=== PATIENT | male | born 1980 | race Caucasian/White ===

== ENCOUNTER 2018-08-28 19:03 | Emergency (ER) | payer MEDICAID ==
[2018-08-28] MEDS ORDERED: SODIUM CHLORIDE 0.9% 1,000 ML IV ONE ×2 (19:27→22:23)
[2018-08-28] MEDS ORDERED: methylPREDNISolone SUCCINATE 125 MG/2 ML VIAL IVP STA (20:45)
[2018-08-28] MEDS ORDERED: ONDANSETRON 4 MG/2 ML VIAL IVP STA (22:23)
[2018-08-28 22:30] LABS: BASOPHILS % (AUTO) 0.4 %; EOSINOPHILS # (AUTO) 0.1 10^3/uL (0.0-0.7); EOSINOPHILS % (AUTO) 0.8 %; HGB - HEMOGLOBIN 13.4 g/dL (14.0-18.0); LYMPHOCYTES # (AUTO) 1.2 10^3/uL (1.5-3.5); MEAN CORPUSCULAR HEMOGLOBIN 30.3 pg (27.0-31.0); MEAN CORPUSCULAR HGB CONC 35.1 g/dL (32.0-36.0); MEAN CORPUSCULAR VOLUME 86.4 fL (80.0-94.0); MEAN PLATELET VOLUME 7.8 fL (7.4-11.4); MONOCYTES # (AUTO) 0.5 10^3/uL (0.0-1.0); MONOCYTES % (AUTO) 5.8 %; PLT - PLATELET COUNT 344 10^3/uL (130-450); RED BLOOD COUNT 4.42 10^6/uL (4.70-6.10); RED CELL DISTRIBUTION WIDTH 14.9 % (12.0-15.0); WHITE BLOOD COUNT 8.9 x10^3/uL (4.8-10.8)
[2018-08-28] MEDS ORDERED: diphenhydrAMINE INJ 50 MG/ML VIAL IVP STA (22:41)
[2018-08-28 22:44] LABS: ALBUMIN/GLOBULIN RATIO 1.3 (1.0-2.2); BILIRUBIN,TOTAL 0.6 mg/dL (0.2-1.0); CALCIUM 8.7 mg/dL (8.5-10.3); CREATININE 0.7 mg/dL (0.6-1.2)
--- NOTE | 2018-08-28 22:45 | ED Physician Documentation ---
PD HPI ABD PAIN - Stated complaint Stated Complaint: ABD PX/CANT EAT - Chief complaint Chief Complaint: Abd Pain - History obtained from History obtained from: Patient - History of Present Illness Timing - onset: How many weeks ago (1) Timing - duration: Weeks (1) Timing - details: Gradual onset, Still present Quality: Cramping Location: Periumbilical Improved by: Laying still Worsened by: Eating, Position, Palpation Associated symptoms: Nausea, Diarrhea. No: Vomiting Similar symptoms before: Diagnosis (chrons) Recently seen: Not recently seen - Additional information Additional information: 38-year-old male with past history of IV drug abuse has recently gotten out of alf about 4 months ago and he has a history of Crohn's disease which during the time he was in alf was active once and he received some oral prednisone with improvement. He states he was on some meds living at the time as well. He has not been on any medications since and over the past week is developed increased cramping and diarrhea. He is having some trouble eating today as it was causing pain as well. Review of Systems Constitutional: reports: Fatigue. denies: Fever, Chills Eyes: denies: Decreased vision Ears: denies: Ear pain Nose: denies: Rhinorrhea / runny nose, Congestion Cardiac: denies: Chest pain / pressure, Palpitations Respiratory: denies: Dyspnea, Cough GI: reports: Abdominal Pain, Nausea, Diarrhea. denies: Vomiting : denies: Dysuria, Frequency PD PAST MEDICAL HISTORY - Past Medical History Cardiovascular: None Respiratory: None Endocrine/Autoimmune: None GI: Crohn's disease : None HEENT: None Psych: Depression, Anxiety Musculoskeletal: Osteopenia, Chronic back pain - Past Surgical History Past Surgical History: Yes - Present Medications Home Medications: Ambulatory Orders Medication Instructions Recorded Confirmed Sulfamethoxazole/Trimethoprim 1 each PO BID #14 tablet 11/20/14 [Sulfamethoxazole-Tmp Ds Tablet] cephALEXin [Keflex] 500 mg PO Q6H #28 capsule 11/20/14 oxyCODONE/ACET 5/325 [Percocet 5 1 - 2 each PO Q4-6H PRN #15 tablet 11/20/14 mg/325 mg] Mesalamine [Pentasa] 1,000 mg PO QID #120 capsule.er 08/28/18 predniSONE [Deltasone] 10 mg PO DAILY #26 tablet 08/28/18 - Allergies Allergies/Adverse Reactions: Allergies Allergy/AdvReac Type Severity Reaction Status Date / Time acetaminophen [From Vicodin] Allergy Emesis Verified 08/28/18 19:12 hydrocodone bitartrate * Allergy Emesis Verified 08/28/18 19:12 [From Vicodin] tramadol HCl * [From Ultram] Allergy Anxiety Verified 08/28/18 19:12 - Social History Does the pt smoke?: Yes Smoking Status: Current every day smoker Does the pt drink ETOH?: No Does the pt have substance abuse?: No - Immunizations Immunizations are current?: Yes - POLST Patient has POLST: No PD ED PE NORMAL - Vitals Vital signs reviewed: Yes (hypertensive marked diastolic ) - General General: Alert and oriented X 3, No acute distress, Well developed/nourished - HEENT HEENT: Atraumatic, PERRL, EOMI, Other (teeth are bad) - Neck Neck: Supple, no meningeal sign, No bony TTP - Cardiac Cardiac: RRR, No murmur - Respiratory Respiratory: No respiratory distress, Clear bilaterally - Abdomen Abdomen: Soft, Other (mild epigastric tenderness. ) - Back Back: No CVA TTP, No spinal TTP - Derm Derm: Normal color, Warm and dry - Extremities Extremities: No deformity, Normal ROM s pain, No edema - Neuro Neuro: Alert and oriented X 3 Eye Opening: Spontaneous Motor: Obeys Commands Verbal: Oriented GCS Score: 15 - Psych Psych: Normal mood, Normal affect Results - Vitals Vitals: Vital Signs - 24 hr 08/28/18 08/28/18 19:05 20:49 Temperature 37.0 C Heart Rate 79 63 Respiratory 18 16 Rate Blood Pressure 147/104 H 132/93 H O2 Saturation 99 98 Oxygen O2 Source Room air - Labs Labs: Laboratory Tests 08/28/18 08/28/18 22:20 22:20 WBC 8.9 RBC 4.42 L Hgb 13.4 L Hct 38.2 L MCV 86.4 MCH 30.3 MCHC 35.1 RDW 14.9 Plt Count 344 MPV 7.8 Neut # (Auto) 7.0 H Lymph # (Auto) 1.2 L [place] # (Auto) 0.5 Eos # (Auto) 0.1 Baso # (Auto) 0.0 Absolute Nucleated RBC 0.01 Nucleated RBC % 0.1 Sodium 133 L Potassium 4.5 Chloride 100 L Carbon Dioxide 28 Anion Gap 5.0 L BUN 10 Creatinine 0.7 Estimated GFR (MDRD) 126 Glucose 96 Calcium 8.7 Total Bilirubin 0.6 AST 16 ALT 11 Alkaline Phosphatase 100 Total Protein 7.0 Albumin 4.0 Globulin 3.0 Albumin/Globulin Ratio 1.3 Lipase 23 PD MEDICAL DECISION MAKING - ED course Complexity details: reviewed old records, reviewed results, re-evaluated patient, considered differential, d/w patient ED course: 38-year-old male with a flare of his Crohn's disease is administered a liter of saline 125 mg of Solu-Medrol and 4 mg of Zofran which causes a reaction of the patient's arm. He subsequently administered Benadryl 25 mg intravenously. Departure - Departure Disposition: 01 Home, Self Care Clinical Impression: Crohn's disease Condition: Stable Instructions: Crohn Disease, Disease Crohn Lifestyle Manage Follow-Up: Your, doctor at the [facility] [Other] Prescriptions: Mesalamine [Pentasa] 1,000 mg PO QID #120 capsule.er predniSONE [Deltasone] 10 mg PO DAILY #26 tablet
[2018-08-28 23:22] VITALS: BP 128/87
== END 2018-08-28 23:22 | disposition home or self-care (01) ==
LOC: ED 19:03
DX: K50.90 Crohn's disease, unspecified, without complications (principal); F17.200 Nicotine dependence, unspecified, uncomplicated
CPT/HCPCS: 36415; 80053; 83690; 85025; 96361; 96374; 96375; 99283; J1200

== ENCOUNTER 2021-09-27 14:17 | Emergency (ER) | payer MEDICAID, OTHER ==
[2021-09-27 15:01] LABS: BILIRUBIN,URINE NEGATIVE (NEGATIVE); GLUCOSE, URINE (UA) NEGATIVE (NEGATIVE); KETONES,URINE (UA) NEGATIVE (NEGATIVE); LEUKOCYTE ESTERASE, URINE NEGATIVE (NEGATIVE); NITRITE,URINE NEGATIVE (NEGATIVE); OCCULT BLOOD,URINE TRACE-INTA (NEGATIVE); PROTEIN,URINE NEGATIVE (NEGATIVE); UROBILINOGEN,URINE 0.2 (NORMAL) E.U./dL (NORMAL)
[2021-09-27 15:02] LABS: CLARITY,URINE HAZY (CLEAR)
[2021-09-27 15:23] LABS: AMORPHOUS SEDIMENT,UR Marked /LPF; BACTERIA,URINE None Seen /HPF (None Seen); RBC,URINE 0-5 /HPF (0-5); SQUAMOUS EPITHELIAL CELL,UR NONE SEEN (<= Few); WBC,URINE 0-3 /HPF (0-3)
[2021-09-27 16:16] LABS: BASOPHILS % (AUTO) 0.4 %; EOSINOPHILS # (AUTO) 0.1 10^3/uL (0.0-0.7); EOSINOPHILS % (AUTO) 0.9 %; HCT - HEMATOCRIT 42.1 % (42.0-52.0); HGB - HEMOGLOBIN 13.8 g/dL (14.0-18.0); LYMPHOCYTES # (AUTO) 1.4 10^3/uL (1.5-3.5); LYMPHOCYTES % (AUTO) 20.4 %; MEAN CORPUSCULAR HEMOGLOBIN 30.8 pg (27.0-31.0); MEAN CORPUSCULAR HGB CONC 32.8 g/dL (32.0-36.0); MEAN PLATELET VOLUME 9.7 fL (7.4-11.4); MONOCYTES # (AUTO) 0.7 10^3/uL (0.0-1.0); MONOCYTES % (AUTO) 10.9 %; NEUTROPHILS # (AUTO) 4.5 10^3/uL (1.5-6.6); NEUTROPHILS % (AUTO) 67.3 %; PLT - PLATELET COUNT 404 10^3/uL (130-450); RED BLOOD COUNT 4.48 10^6/uL (4.70-6.10); RED CELL DISTRIBUTION WIDTH 12.9 % (12.0-15.0); WHITE BLOOD COUNT 6.7 x10^3/uL (4.8-10.8)
[2021-09-27 16:18] LABS: ALBUMIN 4.4 g/dL (3.2-5.5); ALBUMIN/GLOBULIN RATIO 1.2 (1.0-2.2); BILIRUBIN,TOTAL 0.4 mg/dL (0.2-1.0); CALCIUM 9.8 mg/dL (8.5-10.3); CREATININE 0.8 mg/dL (0.6-1.2); POTASSIUM 4.3 mmol/L (3.5-5.0)
[2021-09-27] MEDS ORDERED: SODIUM CHLORIDE 0.9% 1,000 ML IV STA (18:12)
[2021-09-27] MEDS ORDERED: methylPREDNISolone SUCCINATE 125 MG/2 ML VIAL IVP STA (18:12)
--- NOTE | 2021-09-27 18:13 | ED Physician Documentation ---
PD HPI ABD PAIN - Stated complaint Stated Complaint: ABD PX - Chief complaint Chief Complaint: Abd Pain - History obtained from History obtained from: Patient - Additional information Additional information: 41-year-old gentleman with history of Crohn's currently on Humira and mesalamine. Is been several years since he has had a flare but over the last few weeks has had increasing cramps, inability to eat, nausea and yesterday had some small blood in the stool. He used to be a "frequent flyer" but had some problems with opiate addiction and got clean for years ago. Review of Systems Constitutional: reports: Reviewed and negative Eyes: reports: Reviewed and negative Throat: reports: Reviewed and negative Cardiac: reports: Reviewed and negative PD PAST MEDICAL HISTORY - Past Medical History Past Medical History: Yes Cardiovascular: None Respiratory: None Endocrine/Autoimmune: None GI: Crohn's disease : None HEENT: None Psych: Depression, Anxiety Musculoskeletal: Osteopenia, Chronic back pain - Past Surgical History Past Surgical History: Yes - Present Medications Home Medications: Ambulatory Orders Medication Instructions Recorded Confirmed Mesalamine [Pentasa] 1,000 mg PO QID #120 capsule.er 08/28/18 09/27/21 Buprenorphine HCl/Naloxone HCl 8 mg PO DAILY 09/27/21 09/27/21 [Suboxone 8 mg-2 mg Sl Film] Tamsulosin [Flomax] 0.4 mg PO DAILY 09/27/21 09/27/21 Venlafaxine HCl [Effexor Xr] 150 mg PO DAILY 09/27/21 09/27/21 buPROPion HCL [Bupropion Xl] 300 mg PO DAILY 09/27/21 09/27/21 predniSONE [Deltasone] 4 tablet PO DAILY #70 tablet 09/27/21 - Allergies Allergies/Adverse Reactions: Allergies Allergy/AdvReac Type Severity Reaction Status Date / Time acetaminophen [From Vicodin] Allergy Emesis Verified 09/27/21 14:26 hydrocodone bitartrate * Allergy Emesis Verified 09/27/21 14:26 [From Vicodin] tramadol HCl * [From Ultram] Allergy Anxiety Verified 09/27/21 14:26 - Social History Does the pt smoke?: Yes Smoking Status: Current every day smoker Does the pt drink ETOH?: No Does the pt have substance abuse?: No - Immunizations Immunizations are current?: Yes - POLST Patient has POLST: No PD ED PE NORMAL - Vitals Vital signs reviewed: Yes - General General: Alert and oriented X 3, No acute distress - Abdomen Abdomen: Other (Hyperactive bowel tones, soft and nontender) - Neuro Neuro: Alert and oriented X 3, Normal speech - Psych Psych: Normal mood, Normal affect Results - Vitals Vitals: Vital Signs - 24 hr 09/27/21 09/27/21 09/27/21 14:26 17:42 19:23 Temperature 36.7 C 36.6 C Heart Rate 91 94 80 Respiratory 18 20 Rate Blood Pressure 137/91 H 123/78 119/86 H O2 Saturation 98 100 09/27/21 20:23 Temperature 36.6 C Heart Rate 84 Respiratory 14 Rate Blood Pressure O2 Saturation 100 Oxygen O2 Source Room air - Labs Labs: Laboratory Tests 09/27/21 09/27/21 09/27/21 14:52 16:01 16:01 WBC 6.7 RBC 4.48 L Hgb 13.8 L Hct 42.1 MCV 94.0 MCH 30.8 MCHC 32.8 RDW 12.9 Plt Count 404 MPV 9.7 Neut # (Auto) 4.5 Lymph # (Auto) 1.4 L [place] # (Auto) 0.7 Eos # (Auto) 0.1 Baso # (Auto) 0.0 Absolute Nucleated RBC 0.00 Nucleated RBC % 0.0 Sodium 136 Potassium 4.3 Chloride 99 L Carbon Dioxide 24 Anion Gap 13.0 BUN 14 Creatinine 0.8 Estimated GFR (MDRD) 106 Glucose 98 Calcium 9.8 Total Bilirubin 0.4 AST 28 ALT 27 Alkaline Phosphatase 130 H Total Protein 8.0 Albumin 4.4 Globulin 3.6 Albumin/Globulin Ratio 1.2 Lipase 80 H Urine Color YELLOW Urine Clarity HAZY Urine pH 7.0 Ur Specific [place] 1.020 Urine Protein NEGATIVE Urine Glucose (UA) NEGATIVE Urine Ketones NEGATIVE Urine Occult Blood TRACE-INTA Urine Nitrite NEGATIVE Urine Bilirubin NEGATIVE Urine Urobilinogen 0.2 (NORMAL) Ur Leukocyte Esterase NEGATIVE Urine RBC 0-5 Urine WBC 0-3 Ur Squamous Epith Cells NONE SEEN Amorphous Sediment Marked Urine Bacteria None Seen Ur Microscopic Review INDICATED Urine Culture Comments NOT INDICATED PD MEDICAL DECISION MAKING - ED course ED course: 41-year-old gentleman with Crohn's flare, benign exam and relatively unremarkable labs. He was administered IV fluids and Solu-Medrol here with improvement and a steroid taper to go home with pending follow-up with his director medical affairs. Departure - Departure Disposition: , Self Care Clinical Impression: Crohn's disease Condition: Good Record reviewed to determine appropriate education?: Yes Instructions: ED Inflam Bowel Disease Crohn Prescriptions: predniSONE [Deltasone] 4 tablet PO DAILY #70 tablet Comments: Follow-up with your director medical affairs, return for new or worsening symptoms. No need to fill prescriptions tonight as you had an IV dose of steroids but do fill them tomorrow and start the taper. Discharge Date/Time: 09/27/21 20:25
[2021-09-27 19:23] VITALS: BP 119/86
== END 2021-09-27 20:25 | disposition home or self-care (01) ==
LOC: ED 14:17
DX: K50.90 Crohn's disease, unspecified, without complications (principal); F17.200 Nicotine dependence, unspecified, uncomplicated
CPT/HCPCS: 36415; 80053; 81001; 81003; 83690; 85025; 87086; 96374; 99283

== ENCOUNTER 2022-01-25 12:30 | Outpatient (CLI) | payer OTHER ==
[2022-01-25] MEDS ORDERED: IOVERSOL 320 50 ML VIAL ONE (12:46)
[2022-01-25] MEDS ORDERED: IOVERSOL 320 100 ML VIAL IVP ONE ×2 (12:46→16:04)
[2022-01-25] MEDS ORDERED: IOVERSOL 320 50 ML VIAL PO ONE (16:04)
--- NOTE | 2022-01-25 16:20 | CT Report ---
PROCEDURE: CHEST W INDICATIONS: UNEXPLAINED WEIGHT LOSS CONTRAST: IV CONTRAST: Optiray 320 ml: 100 PO CONTRAST: Optiray 320 ml50 TECHNIQUE: After the administration of intravenous contrast, 1 mm axial images were acquired from the pulmonary apices through the posterior costophrenic angles. Axial 5 mm soft tissue kernel reconstructions were performed as well as 8 mm axial MIP and coronal and sagittal 5 mm reformations. For radiation dose reduction, the following was used: automated exposure control, adjustment of mA and/or kV according to patient size. COMPARISON: None. FINDINGS: CT CHEST: Thyroid: Homogeneous. Vasculature: The thoracic aorta and arch vasculature have a normal contrasted appearance and are norm al size and contour. No evidence for dissection. Heart: No cardiomegaly or significant pericardial effusion. Mediastinum: No pathologic lymph node enlargement by size criteria. Lung/pleura: No pleural effusion, consolidation, or pneumothorax. No suspicious pulmonary nodule or m ass. Tracheobronchial tree: Patent. Bones: No significant abnormality. Mild anterior compression deformity of T8, which appears remote. Chest wall: The chest wall and axilla are within normal limits. IMPRESSION: 1.No significant abnormality. Reviewed by: Konstantin aGrcia MD on 01/25/2022 4:19 PM PDT Approved by: Konstantin Garcia MD on 01/25/2022 4:19 PM PDT Station ID: [id number]
--- NOTE | 2022-01-25 16:25 | CT Report ---
PROCEDURE: Abdomen/Pelvis W INDICATIONS: UNEXPLAINED WEIGHT LOSS CONTRAST: IV CONTRAST: Optiray 320 ml: 100 PO CONTRAST: Optiray 320 ml50 TECHNIQUE: After the administration of oral and intravenous contrast, 5 mm thick sections acquired from the diap hragms to the symphysis. 5 mm thick coronal and sagittal reformats were acquired. For radiation dos e reduction, the following was used: automated exposure control, adjustment of mA and/or kV accordin g to patient size. COMPARISON: May 21, 2014. FINDINGS: Gallbladder: The gallbladder is distended with a smooth thin wall. Biliary tree: No intra-or extrahepatic biliary ductal dilatation. Liver: The liver demonstrates normal enhancement, size, and contour. Focal fatty infiltration adjacen t to the falciform ligament. Spleen: Normal enhancement, size and morphology is seen. Embolic material is seen in the splenic hilu m, which causes beam hardening artifact. Pancreas: No contour deforming mass or inflammatory change. Adrenals: Normal size without masses. Kidneys/ureters: Symmetric enhancement without evidence of obstructive uropathy. Punctate right lower pole nephrolithiasis. Vasculature: No evidence of aneurysm or other significant vascular pathology. Lymphatic system: No pathologic enlargement by size criteria. GI/mesentery: No evidence of intestinal obstruction. Moderate stool burden of the descending colon th rough the splenic flexure. Peritoneum/Retroperitoneum: No free intraperitoneal gas or large collection. Urinary bladder: The urinary bladder is distended with a smooth thin wall. Pelvic organs: No significant abnormality. Bones/soft tissues: No significant abnormality. IMPRESSION: 1.No significant abnormality. Reviewed by: Konstantin Garcia MD on 01/25/2022 4:24 PM PDT Approved by: Konstantin Garcia MD on 01/25/2022 4:24 PM PDT Station ID: [id number]
== END 2022-01-25 12:31 | disposition home or self-care (01) ==
LOC: DI 12:30
PROVIDERS: ATTEND Hospitalist
DX: R63.4 Abnormal weight loss (principal)
CPT/HCPCS: 71260; 74177; Q9967

== ENCOUNTER 2022-09-28 19:19 | Emergency (ER) | payer OTHER ==
[2022-09-28 19:49] LABS: BASOPHILS % (AUTO) 0.5 %; EOSINOPHILS % (AUTO) 0.6 %; HCT - HEMATOCRIT 39.7 % (42.0-52.0); HGB - HEMOGLOBIN 13.1 g/dL (14.0-18.0); LYMPHOCYTES # (AUTO) 1.9 10^3/uL (1.5-3.5); LYMPHOCYTES % (AUTO) 30.5 %; MEAN CORPUSCULAR HEMOGLOBIN 31.1 pg (27.0-31.0); MEAN CORPUSCULAR VOLUME 94.3 fL (80.0-94.0); MEAN PLATELET VOLUME 9.5 fL (7.4-11.4); MONOCYTES # (AUTO) 0.5 10^3/uL (0.0-1.0); MONOCYTES % (AUTO) 7.7 %; NEUTROPHILS # (AUTO) 3.9 10^3/uL (1.5-6.6); NEUTROPHILS % (AUTO) 60.5 %; PLT - PLATELET COUNT 308 10^3/uL (130-450); RED BLOOD COUNT 4.21 10^6/uL (4.70-6.10); RED CELL DISTRIBUTION WIDTH 11.6 % (12.0-15.0); WHITE BLOOD COUNT 6.4 x10^3/uL (4.8-10.8)
[2022-09-28] MEDS ORDERED: iohexoL-300 100 ML VIAL ONE (19:50)
--- NOTE | 2022-09-28 19:51 | ED Physician Documentation ---
PD HPI CHEST PAIN - Stated complaint Stated Complaint: CHEST PX, NUMBNESS, NAUSEA - Chief complaint Chief Complaint: Cardiac - History obtained from History obtained from: Patient - Additional information Additional information: 42-year-old gentleman with history of hypertension, tobacco abuse, hyperlipidemia, Peyronie's disease presents with symptoms starting yesterday marked by nausea without vomiting, migratory chest pains generally central but sometimes right-sided with some radiation to the right scapula and both arms. It is worse with movement but not exertion per se. He has no personal history of heart problems but notes that his father has a history of atrial fibrillation status post failed ablations. Review of Systems Constitutional: denies: Fever, Chills, Fatigue Cardiac: reports: Chest pain / pressure, Palpitations (Chronic). denies: Pedal edema, Calf pain Respiratory: denies: Dyspnea, Cough PD PAST MEDICAL HISTORY - Past Medical History Cardiovascular: None Respiratory: None Endocrine/Autoimmune: None GI: Crohn's disease : None HEENT: None Psych: Depression, Anxiety Musculoskeletal: Osteopenia, Chronic back pain - Past Surgical History Past Surgical History: Yes - Present Medications Home Medications: Ambulatory Orders Medication Instructions Recorded Confirmed Mesalamine [Pentasa] 1,000 mg PO QID #120 capsule.er 08/28/18 09/27/21 Buprenorphine HCl/Naloxone HCl 8 mg PO DAILY 09/27/21 09/27/21 [Suboxone 8 mg-2 mg Sl Film] Tamsulosin [Flomax] 0.4 mg PO DAILY 09/27/21 09/27/21 Venlafaxine HCl [Effexor Xr] 150 mg PO DAILY 09/27/21 09/27/21 buPROPion HCL [Bupropion Xl] 300 mg PO DAILY 09/27/21 09/27/21 predniSONE [Deltasone] 4 tablet PO DAILY #70 tablet 09/27/21 - Allergies Allergies/Adverse Reactions: Allergies Allergy/AdvReac Type Severity Reaction Status Date / Time acetaminophen [From Vicodin] Allergy Emesis Verified 09/28/22 20:08 hydrocodone bitartrate * Allergy Emesis Verified 09/28/22 20:08 [From Vicodin] tramadol HCl * [From Ultram] Allergy Anxiety Verified 09/28/22 20:08 - Social History Does the pt smoke?: Yes Smoking Status: Current every day smoker Does the pt drink ETOH?: No Does the pt have substance abuse?: No - Immunizations Immunizations are current?: Yes - POLST Patient has POLST: No PD ED PE NORMAL - Vitals Vital signs reviewed: Yes - General General: Alert and oriented X 3, No acute distress - HEENT HEENT: PERRL, EOMI - Neck Neck: Supple, no meningeal sign, No bony TTP - Cardiac Cardiac: RRR, No murmur, Strong equal pulses (Equal radial pulses) - Respiratory Respiratory: No respiratory distress, Clear bilaterally - Abdomen Abdomen: Non tender - Extremities Extremities: No edema, No calf tenderness / cord - Neuro Neuro: Alert and oriented X 3, Normal speech Results - Vitals Vitals: Vital Signs - 24 hr 09/28/22 09/28/22 19:30 19:40 Temperature 36.4 C L 36.5 C Heart Rate 65 65 Respiratory 18 18 Rate Blood Pressure 150/93 H 150/93 H O2 Saturation 98 98 Oxygen O2 Source Room air - EKG (time done) 1930 Rate: Rate (enter#) (70) Rhythm: NSR [place]: Normal Intervals: Normal SC QRS: Normal Ischemia: Normal ST segments - Labs Labs: Laboratory Tests 09/28/22 09/28/22 09/28/22 19:44 19:44 19:44 WBC 6.4 RBC 4.21 L Hgb 13.1 L Hct 39.7 L MCV 94.3 H MCH 31.1 H MCHC 33.0 RDW 11.6 L Plt Count 308 MPV 9.5 Neut # (Auto) 3.9 Lymph # (Auto) 1.9 [place] # (Auto) 0.5 Eos # (Auto) 0.0 Baso # (Auto) 0.0 Absolute Nucleated RBC 0.00 Nucleated RBC % 0.0 Sodium 136 Potassium 3.8 Chloride 98 L Carbon Dioxide 28 Anion Gap 10.0 BUN 17 Creatinine 0.8 Estimated GFR (MDRD) 106 Glucose 113 H Calcium 9.8 Total Bilirubin 0.3 AST 24 ALT 15 Alkaline Phosphatase 93 Troponin I High Sens < 2.3 L Total Protein 8.1 Albumin 4.7 Globulin 3.4 Albumin/Globulin Ratio 1.4 Lipase 36 - Rads (name of study) CT angiography of the chest was unremarkable Radiology: EMP read contemporaneously PD MEDICAL DECISION MAKING - ED course ED course: Heart score 1 for smoking. PERC negative, aortic dissection considered given elevated blood pressures and radiation to the back, imaging negative for same. Departure - Departure Disposition: 01 Home, Self Care Clinical Impression: Chest pain Qualifiers: Chest pain type: unspecified Qualified Code(s): R07.9 - Chest pain, unspecified Condition: Good Record reviewed to determine appropriate education?: Yes Instructions: ED Chest Pain NonCardiac Comments: You were seen today for nonspecific chest pain, there is no evidence of active heart disease with your EKG and your troponin being normal. Given the migratory pain and the pain to the back associated with elevated blood pressures there was also concern for vascular injury such as aortic dissection, for that we did a CT angiogram which was negative as well. Return for new or worsening symptoms, follow-up with your primary care physician, next available appointment.
[2022-09-28 20:05] LABS: ALBUMIN 4.7 g/dL (3.2-5.5); ALBUMIN/GLOBULIN RATIO 1.4 (1.0-2.2); BILIRUBIN,TOTAL 0.3 mg/dL (0.2-1.0); CALCIUM 9.8 mg/dL (8.5-10.3); CREATININE 0.8 mg/dL (0.6-1.2); POTASSIUM 3.8 mmol/L (3.5-5.0); TOTAL PROTEIN 8.1 g/dL (6.7-8.2)
[2022-09-28] MEDS ORDERED: KETOROLAC 15 MG/ML VIAL IVP STA (20:41)
[2022-09-28] MEDS ORDERED: ONDANSETRON 4 MG/2 ML VIAL IVP STA (20:41)
--- NOTE | 2022-09-28 21:35 | CT Report ---
PROCEDURE: ANGIO CHEST W/WO INDICATIONS: Migratory chest and back pain, aorta protocol CONTRAST: Omni 300 80ml TECHNIQUE: After the administration of intravenous contrast, 2 mm axial images were acquired from the pulmonary apices to the posterior costophrenic angles during the arterial phase. In addition, 1 mm lung kernel and 5 mm soft tissue kernel reconstructions were performed. 3-dimensional coronal oblique maximum int ensity projection (MIP) reformats, 8 mm axial MIP, and 5 mm coronal and sagittal MPR reformats were t hen performed through the thorax. For radiation dose reduction, the following was used: automated exp osure control, adjustment of mA and/or kV according to patient size. COMPARISON: CT chest 01/25/2022 FINDINGS: Image quality: There is metallic streak artifact in the left upper quadrant limiting evaluation. Pulmonary arteries: Pulmonary arteries are normal in size, and demonstrate no intraluminal filling d efects to suggest central pulmonary embolism. Aorta: The thoracic aorta is normal in caliber and contour. No intimal flaps to suggest dissection. T here is conventional branching of the aortic arch. Visualized great vessels are normal in caliber and patent. Lower Neck: No lymphadenopathy by size criteria. Thyroid: Visualized thyroid demonstrates no discrete nodules. Axillae: No lymphadenopathy by size criteria. Chest Wall: Unremarkable. Bones: Visualized osseous structures demonstrate no suspicious lesions. Lungs and Airways: No acute consolidation. There is minimal dependent atelectasis. The trachea and c entral airways are patent. Pleura: No pneumothorax or pleural effusions. Heart: Heart size is normal. No pericardial effusion. Thoracic Vessels: The thoracic aorta is normal in size. Mediastinum and Mera: No lymphadenopathy by size criteria. Esophagus: No wall thickening. No hiatal hernia. Abdomen: Visualized upper abdomen demonstrates aneurysm coils or surgical clips anterior to the left kidney in the left upper quadrant with extensive metallic streak artifact limiting evaluation. IMPRESSION: 1. No evidence of pulmonary embolism. 2. Thoracic aorta demonstrates no evidence of aneurysm or dissection. 3. No acute airspace consolidation. Reviewed by: Joe Herzog MD on 09/28/2022 9:34 PM PST Approved by: Joe Herzog MD on 09/28/2022 9:34 PM PST Station ID: [id number]
[2022-09-28 21:45] VITALS: BP 129/80
[2022-09-28] MEDS ORDERED: PANTOPRAZOLE 40 MG TABLET PO STA (21:45)
[2022-09-29] MEDS ORDERED: iohexoL-300 100 ML VIAL IVP ONE (02:48)
== END 2022-09-28 21:57 | disposition home or self-care (01) ==
LOC: ED 19:19
DX: R07.89 Other chest pain (principal); Z72.0 Tobacco use
CPT/HCPCS: 36415; 71275; 80053; 83690; 84484; 85025; 93005; 96374; 96375; 99284; A9270; Q9967